=== PATIENT | male | born 1940 | race Caucasian/White ===

== ENCOUNTER 2022-04-06 20:39 | Outpatient (CLI) | payer MEDICARE, SELFPAY | END 2022-04-06 20:40 | disposition home or self-care (01) | LOC: SLEEP 20:39 | PROVIDERS: Visit Provider Internal Medicine | DX: G47.33 Obstructive sleep apnea (adult) (pediatric) (principal); G47.31 Primary central sleep apnea | CPT/HCPCS: 95811 ==

== ENCOUNTER 2022-04-16 14:48 | Outpatient (CLI) | payer MEDICARE, SELFPAY | END 2022-04-16 14:49 | disposition home or self-care (01) | LOC: RAD 14:50 | PROVIDERS: PCP Family Medicine; Visit Provider Internal Medicine | DX: G47.31 Primary central sleep apnea (principal); I51.7 Cardiomegaly; I35.1 Nonrheumatic aortic (valve) insufficiency; I35.0 Nonrheumatic aortic (valve) stenosis; I34.0 Nonrheumatic mitral (valve) insufficiency | CPT/HCPCS: 93306 ==

== ENCOUNTER 2022-05-02 20:27 | Outpatient (CLI) | payer MEDICARE, SELFPAY | END 2022-05-02 20:28 | disposition home or self-care (01) | LOC: SLEEP 20:27 | PROVIDERS: PCP Family Medicine; Visit Provider Internal Medicine | DX: G47.33 Obstructive sleep apnea (adult) (pediatric) (principal); G47.30 Sleep apnea, unspecified | CPT/HCPCS: 95811 ==

== ENCOUNTER 2022-06-20 20:54 | Outpatient (CLI) | payer MEDICARE, SELFPAY | END 2022-06-20 20:55 | disposition home or self-care (01) | LOC: SLEEP 20:55 | PROVIDERS: PCP Family Medicine; Visit Provider Internal Medicine | DX: G47.33 Obstructive sleep apnea (adult) (pediatric) (principal); G47.31 Primary central sleep apnea | CPT/HCPCS: 95811 ==

== ENCOUNTER 2024-08-31 10:21 | Emergency (ER) | payer MEDICARE, SELFPAY ==
[2024-08-31] VITALS (36 sets, daily range): BP systolic 56–116; BP diastolic 34–76; PULSE 71–111; RESP 13–40; TEMP 35.9; O2SAT 83–933
--- OUTSIDE RECORDS SUMMARY | 2024-08-31 10:23 | XMS_ITS | Clinical Summary ---
Author Organization [facility] Address [address] [place] [id number] Care Team Providers Care [place] Man Name Role Phone Yordan Hernandez MD Primary Care Provider [phone] Allergies Active Allergy Reactions Criticality Noted Date Comments Tamsulosin Other - Describe In Comment Field 01/21/2017 Dry mouth Hydrocodone-Acetaminophen Insomnia 08/20/2015 Medications COQ10 SG 100 ORAL 3 30 mg tabs daily Active MULTIVITAMIN CAP One daily Act stacie aspirin enteric coated 81 mg tabletIndications: Coronary atherosclerosis of unspecified type of vessel, [place] or graft Take 1 tablet by mouth once daily with a meal. 0 06/14/19 12 Active amoxicillin (AMOXIL) 500 mg capsule Take 500 mg by mouth. for dental procedure 05/01/19 21 Active latanoprost (XALATAN) 0.005 % ophthalmic solution Place 1 Drop into both eyes once daily. 04/01/20 21 Active desonide 0.05% (DESOWEN 0.05% LOTION) 0.05 % lotionIndications: Dermatitis Apply topically to affected area(s) two times daily. Use for up to 2 weeks then take a week off and repeat. 59 mL 01/12/20 22 Active finasteride (PROSCAR) 5 mg tablet Take 5 mg by mouth every morning. 05/14/19 23 Active nitroglycerin (NITROSTAT) 0.4 mg sublingual tabletIndications: Atherosclerosis of coronary artery bypass graft of [place] heart without angina pectoris Place 1 Tablet (0.4 mg) under the tongue every 5 minutes if needed for Chest Pain (Okay to repeat every 5 minutes X 2 if ongoing pain.). 30 Tablet 5 06/17/19 24 Active BIPAPIndications:P rimary central sleep apnea ASV machine for home use at pressure: 9 epap, PS 3-10 cmw, full face mask x1/3month with a full face cushion x1/mo 1 Each 11 06/22/19 25 Active memantine 10 mg tabletIndications: Memory loss TAKE ONE TABLET BY MOUTH TWICE A DAY 180 Tablet 08/07/19 25 Active amLODIPine 10 mg tabletIndications: CAD in [place] artery,Essential hypertension TAKE ONE-HALF TABLET BY MOUTH EVERY DAY 45 Tablet 1 08/07/19 25 Active clopidogreL 75 mg tabletIndications: Coronary artery disease involving [place] coronary artery of [place] heart without angina pectoris TAKE ONE TABLET BY MOUTH EVERY MORNING 90 Tablet 4 08/07/19 25 Active rosuvastatin 20 mg tabletIndications: CAD in [place] artery TAKE ONE TABLET BY MOUTH EVERY DAY WITH EVENING MEAL 90 Tablet 1 08/07/19 25 Active pantoprazole 20 mg tabletIndications: Gastroesophageal reflux disease without esophagitis TAKE ONE TABLET BY MOUTH EVERY DAY 90 Tablet 1 08/19/19 25 Active amLODIPine (NORVASC) 10 mg tabletIndications: CAD in [place] artery,Essential hypertension Take 0.5 Tablets (5 mg) by mouth once daily. 45 Tablet 4 06/17/19 24 2024 Discontinued rosuvastatin (CRESTOR) 20 mg tabletIndications: CAD in [place] artery Take 1 Tablet (20 mg) by mouth once daily with evening meal. Wait until they call for this. 90 Tablet 4 06/17/19 24 2024 Discontinued pantoprazole (PROTONIX) 20 mg tabletIndications: Gastroesophageal reflux disease without esophagitis Take 1 Tablet (20 mg) by mouth once daily. 90 Tablet 06/17/19 24 2024 Discontinued clopidogreL (PLAVIX) 75 mg tabletIndications: Coronary artery disease involving [place] coronary artery of [place] heart without angina pectoris Take 1 Tablet (75 mg) by mouth every morning. 90 Tablet 4 06/17/19 24 2024 Discontinued memantine (NAMENDA) 10 mg tabletIndications: Memory loss TAKE ONE TABLET (10 MG) BY MOUTH TWICE A DAY 180 Tablet 4 06/17/19 24 2024 Discontinued Active Problems Problem Noted Date Diagnosed Date ROSALIO 04/06/2022 AHI- 88; 1/2 centrals 06/22/2022 Central apnea 04/06/2022 AHI- 88; 1/2 centrals 0 06/22/2022 Depression, recurrent 01/18/2022 Memory loss 04/08/2021 Overview (04/17/2024): He scored 23/30 on MMSE on 04/08/2021. He was started on Aricept 04/08/2021. He scored 25/30 on MMSE on 01/18/2022. 03/2022 stopped Aricept due to Ventricular tachycardia and started Namenda. His MMSE today is 27/30 on 07/02/2022. Do not drive unless you are approved to drive by [employer]. He was told this in 2021 Coronary artery disease invo lving [place] coronary artery of [place] heart without angina pectoris 04/08/2021 Overview (04/08/2021): As of 04/2017 Dr. Ba of Cardiology recommended lifelong Plavix due to his left anterior descending stent. Gastroesophageal reflux disease 07/14/2016 Anticoagulation monitoring, special range (1.8-2 .5) 09/01/2015 Status post total hip replacement, right 016 Malignant melanoma 10/31/2013 Bradycardia 06/15/2012 Overview (07/29/2017): As of 04/2017 Dr. Ba of Cardiology stated he may eventually need a pacemaker and he stopped his Atenolol Diverticulosis of colon (without mention of hemo rrhage) 08/07/2010 Overview (08/07/2010): Colonoscopy 07/2010 diverticulosis Acute gastritis without mention of hemorrhage Overview (07/13/2010): EGD 06/2010 gastritis Hypertension 07/01/2008 Mixed Hyperlipidemia 09/12/2006 Overview (07/12/2008): Basename 07/01/08 0942 CHOL 148 TRIGLYCER* 103 HDL 49 CHOLHDLRA* 3.02 LDLCHOL 78 Osteoarthrosis, unspecified whether generalized or localized, unspecified site 09/12/2006 Encounters Date Type Department Care Team Description 08/17/2024 Refill [facility] [address] [facility] [place] [address] Yordan Hernandez MD Refill Request (Pantoprazole) 08/05/2024 Refill [facility] [address] [facility] [place] [address] Yordan Hernandez MD Refill Request (Memantine, Amlodipine, Clopidogrel, Rosuvastatin) 06/21/2024 10:00 AM CDT Office Visit [facility] [address] [place] [place] [address] Oli Casiano MD Sleep Follow-up 06/21/2024 Travel from Last 3 Months Immunizations Immunization Administration Dates Next Due Influenza, High-dose Quadrivalent Inactivated Influenza, Inactivated AIIV4 (Age 65+ Years) Preserv Free 01/18/2022,04/08/2021 Pneumococcal Poly,23-Valent (Pneumovax) 07/30/19 18 Pneumococcal conj 13-Valent (Prevnar 13) 015 Td (Age >=7 Years) 06/20/1995 Td, Preservative Free (age >= 7 Years) 7 Tdap 10/19/2017 Family History Medical History Relation Name Comments Thyroid Disease Brother after b reaking his hip at 92 Heart Disease Father ID at 69 Cancer Mother female Thyroid Disease Sister Cancer Son Malignant Melan anurag Relation Name Status Comments Brother Father Mother Sister Son Social History Tobacco Use Types Packs/Day Years Used Date Smoking Tobacco: Never Passive Smoke Exposure: Never Smokeless Tobacco: Never Tobacco Cessation:Counseling Given: Yes Alcohol Use Standard Drinks/Week Comments No 0 (1 standard drink = 0.6 oz pur e alcohol) PHQ-2 Answer Date Recorded PHQ-2 TOTAL SCORE 0 06/17/2023 Social Connections Answer Date Recorded Frequency of Communication with Friends and Fami ly 0 01/18/2022 Financial Resource Strain Answer Date R ecorded Difficulty of Paying Living Expenses 3 01/18/2022 Difficulty of Paying Living Expenses Not on file 01/18/2022 Food Insecurity Answer Date Recorded Worried About Running Out of Food in the Last Ye ar 1 01/18/2022 Transportation Needs Answer Date Record ed Lack of Transportation (Medical) 1 01/18/2022 Housing Stability Answer Date Recorded Unable to Pay for Housing in the Last Year 1 01/18/2022 Sex and Gender Information Value Date Recorded Sex Assigned at Not on file 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 Gender Identity Not on file Sexual Orientation Not on file Occupation Industry Job Start Date Job End Date [employer] Not on file Not on file Not on file Obstetrics History Last Filed Vital Signs Vital Sign Reading Time Taken Comments Blood Pressure 137/64 06/21/2024 10:16 AM CDT Pulse 48 06/21/2024 10:16 AM CDT Temperature 37.1 C (98.7 F) 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 Respiratory Rate 16 11/07/2018 11:38 AM CDT Oxygen Saturation 97% 06/21/2024 10:16 AM CDT Inhaled Oxygen Concentration - - Weight 64.4 kg (142 lb) 06/21/2024 10:16 AM CDT Height 165 cm (5' 4.96) 06/21/2024 10:16 AM CDT Body Mass Index 23.66 06/21/2024 10:16 AM CDT Plan of Treatment Health Maintenance Due Date Last Done Comments Depression screening for age 12+ 1952 Zoster (shingles) series for age 50+ (1 of 2) 1989 RSV vaccine for adults or (1 - 1-dose 75+ series) 2014 COVID-19 vaccine series ( season) 2023 02/27/2021, 06/21/2020, 05/31/2020 Medicare Wellness for age 65+ 06/17/2024 06/17/2023, 04/09/2022, 04/08/2021, Additional history exists Influenza Vaccine (Season Ended) 2024 01/18/2022, 04/08/2021 BMI (ht and wt on same day) for age 18+ 06/21/2025 06/21/2024, 02/15/2023, 09/17/2022, Additional history exists Tetanus booster 10/20/2027 10/19/2017, 08/2006, 06/20/1995 Pneumococcal series for age 50+ Completed 07/29/2017, 10/09/2014 Tdap Completed 10/19/2017 Hepatitis B series for 19+ Aged Out N o longer eligible based on patient's age to complete this topic Insurance [employer] MEDICARE ADVANTAGE [facility] Advance Directives Documents on File Type Date Recorded 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 Healthcare Directive 01/03/2018 11:17 AM H [employer] DIRECTIVE, [employer], 12/28/17 Healthcare Directive 11/25/2017 12:00 AM * Full Code (Latest Code Status on File) Date Activated Date Inactivated Comments 06/14/2012 7:16 AM 06/15/2012 1:06 PM * Full Code Date Activated Date Inactivated Comments 07/12/2008 11:20 AM 07/13/2008 5:19 PM * Full Code Date Activated Date Inactivated Comments 03/19/2005 7:32 AM 03/20/2005 1:58 PM Care Teams [place] Man Relationship Specialty Start Date End Date Yordan Hernandez MD [address] [place] [address] PCP - General Family Practice 01/23/19
--- OUTSIDE RECORDS SUMMARY | 2024-08-31 10:23 | XMS_ITS | Data Portability ---
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 Plan of Treatment Reminders Order Date Submit Date Provider Last Modified By Organization Details Last Modified Time Details Appointments None recorded. Lab urinalysis, dipstick 2023 024 [email or web address] [facility], [address], [place], [address], 4 11:58:50 urinalysis, dipstick 2022 023 [email or web address] [facility], [address], [place], [address], 3 11:50:57 urinalysis, dipstick 2022 023 [email or web address] [facility], [address], [place], [address], 3 11:10:18 PSA, serum or plasma 2022 023 POLINA [facility], [address], [place], [address], 3 15:43:12 Referral None recorded. Procedures None recorded. Surgeries None recorded. Imaging None recorded. Medication Orders finasteride 5 mg tablet 2023 024 [facility] [place], [address], 12:43:01 finasteride 5 mg tablet 2022 023 [facility], [address] [place], [address], 12:12:58 finasteride 5 mg tablet 2022 023 [facility], [address] [place], [address], 11:58:49 Patient TargetsNo targets recorded. Patient Instructions Encounter Date Encounter Id Patient Instructions Last Modified By Organization Details Last Modified Time 05/14/2022 [id number] Irritative LUTS with large gland, safely emptying, no UTI. I will check a PSA to ensure not 500+, his TRUE is not clearly prostate cancer, but is equivocal. Will begin finasteride - this does not impact blood pressure or cerebral tissue perfusion like Flomax. So long as PSA is not logrithmically high, will see me in Oct 2022 for follow up. Not available 05/14/2022 11:58:46 10/22/2022 [id number] Day and night symptoms improved with single agent finasteride. Will continue. Follow up with me in 1 year. Not available 10/22/2022 12:12:46 11/04/2023 [id number] Navarro is doing well on solo finasteride, QOL relative to habits remains strong. Continue finasteride, with me in 1 year. Not available 11/04/2023 12:42:58 Reason for Referral None Reported. Results Created Date Observation Date Name Description Value Unit Range Abnormal Flag Note LastModifiedBy Organization Detail LastModifiedTime 05/14/1905/14/2022 PSA, serum or plasm a PSA 1.9 0-4.0 Not Available [facility] [address], [place], [address], 05/14/2022 11:56:56 05/14/1905/14/2022 urina lysis , dipst ick Nitrates-Sta tus negati ve Not Available [facility] [address], [place], [address], 05/14/2022 11:09:47 05/14/19 23 05/14/2022 urina lysis , dipst ick Blood-Status Negati ve Not Available [facility] [address], [place], [address], 05/14/2022 11:09:47 05/14/19 23 05/14/2022 urina lysis , dipst ick Leuko-Status Negati ve Not Available [facility] [address], [place], [address], 05/14/2022 11:09:47 10/23/19 23 10/22/2022 urina lysis , dipst ick Bilirubin-St atus Small Not Available [facility] [address], [place], [address], 10/22/2022 11:49:57 10/23/19 23 10/22/2022 urina lysis , dipst ick Ketones-Stat us 15 Not Available [facility] [address], [place], [address], 10/22/2022 11:49:57 10/23/19 23 10/22/2022 urina lysis , dipst ick pH-Status 5.0 Not Available [facility] [address], [place], [address], 10/22/2022 11:49:57 10/23/19 23 10/22/2022 urina lysis , dipst ick Protein-Stat us >=9.0 Not Available [facility] [address], [place], [address], 10/22/2022 11:49:57 10/23/19 23 10/22/2022 urina lysis , dipst ick Nitrates-Sta tus negati ve Not Available [facility] [address], [place], [address], 10/22/2022 11:49:57 10/23/19 23 10/22/2022 urina lysis , dipst ick Blood-Status Negati ve Not Available [facility] [address], [place], [address], 10/22/2022 11:49:57 10/23/19 23 10/22/2022 urina lysis , dipst ick Leuko-Status Negati ve Not Available [facility] [address], [place], [address], 10/22/2022 11:49:57 10/23/19 23 10/22/2022 urina lysis , dipst ick Specimen Type Voided Not Available [facility] [address], [place], [address], 10/22/2022 11:49:57 11/04/19 24 11/04/2023 urina lysis , dipst ick BLOOD Negati ve Not Available [facility] [address], [place], [address], 11/04/2023 11:58:22 11/04/19 24 11/04/2023 urina lysis , dipst ick BILIRUBIN Negati ve Not Available [facility] [address], [place], [address], 11/04/2023 11:58:22 11/04/19 24 11/04/2023 urina lysis , dipst ick UROBILINOGEN 1.0 mg/dL Not Available [facility] [address], [place], [address], 11/04/2023 11:58:22 11/04/19 24 11/04/2023 urina lysis , dipst ick KETONES Negati ve Not Available [facility] [address], [place], [address], 11/04/2023 11:58:22 11/04/19 24 11/04/2023 urina lysis , dipst ick PROTEIN Negati ve Not Available [facility] [address], [place], [address], 11/04/2023 11:58:22 11/04/19 24 11/04/2023 urina lysis , dipst ick NITRITES Negati ve Not Available [facility] [address], [place], [address], 11/04/2023 11:58:22 11/04/19 24 11/04/2023 urina lysis , dipst ick GLUCOSE Negati ve Not Available [facility] [address], [place], [address], 11/04/2023 11:58:22 11/04/19 24 11/04/2023 urina lysis , dipst ick p.H. 5.5 Not Available [facility] [address], [place], [address], 11/04/2023 11:58:22 11/04/19 24 11/04/2023 urina lysis , dipst ick S.G. (Specific [place]) 1.025 Not Available [facility] [address], [place], [address], 11/04/2023 11:58:22 11/04/19 24 11/04/2023 urina lysis , dipst ick LEUKOCYTES Negati ve Not Available [facility] [address], [place], [address], 11/04/2023 11:58:22 05/19/19 23 05/14/2022 bladd er scan (PROC ) No observ ation record ed. BARCODE Not Available 2022 08:53:07 Result Notes None recorded. Problems Name Problem SNOMED Code Status Onset Date Resolution Date Notes Provider Name and Address Organization Details Recorded Time Nocturia 166691711 Active Stevenson Pack MD [address] [place] [address],[address], [address] , [facility] 12:42:37 Problem Notes None recorded. Procedures Surgical History Date Name Laterality Status Provider Name and Address Organization Details Recorded Time COMPLEX VISIT completed Stevenson Pack MD [address] [place] [address],[address], [place], [address], [facility] 11/04/2023 12:42:24 024 Bladder Scan completed Jennifer Palacios [facility] 11/04/2023 11:58:56 023 Bladder Scan completed Mariia Lambert [facility] 10/22/2022 11:59:41 023 Bladder Scan completed Katlyn Moura [facility] 05/14/2022 11:11:51 023 Blood Draw/[employer]ESS[employer]/PSA RESULTS completed Katlyn Moura [facility] 05/14/2022 14:14:14 cardiopulmonary bypass operation completed Katlyn Moura [facility] 05/14/2022 11:08:53 Appendectomy completed Katlyn Moura [facility] 05/14/2022 11:09:16 Imaging Results Imaging Date Name Status LastModified by Organiz ation Details LastModified Time 05/14/2022 bladder scan (PROC) completed BARCODE Information not available 05/19/2022 08:53:07 Procedure Notes None recorded. Medical Equipment None Reported. Allergies Allergen ID Allergen Name Allergen Category Reaction Reaction Severity Criticality Documentation Date Start Date Code Code System Note Provider Name and Address Organization Details Recorded Time 566739 acetamino phen / hydrocodo ne medicatio n Not available Not available Not available 05/14/2022 35581 2 RxNorm Katlyn terry [facility] 11:08:13 486265 Flomax medicatio n Not available Not available Not available 11/04/2023 05160 3 RxNorm Jennifer Palacios mara [facility] 12:01:38 Medications Name Sig Start Date Stop Date Status Note LastModified by Organization Details LastModified Time amoxicillin 500 mg capsule active Not Available Not Available Not Available latanoprost 0.005 % eye drops active Not Available Not Available Not Available ofloxacin 0.3 % eye drops active Not Available Not Available Not Available donepezil 10 mg tablet active Not Available Not Available No t Available clopidogrel 75 mg tablet active Not Available Not Available Not Available pantoprazole 20 mg tablet,delay ed release active Not Available Not Available N ot Available ketorolac 0.5 % eye drops 11/03 completed Not Available Not Available Not Available prednisolone acetate 1 % eye drops,suspen saqib 11/03 completed Not Available Not Available Not Available amlodipine 10 mg tablet active Not Available Not Available Not Available timolol maleate 0.25 % eye drops 11/03 completed Not Available Not Available Not Available desonide 0.05 % lotion active Not Available Not Available Not Available timolol maleate 0.5 % eye drops 11/03 completed Not Available Not Available Not Available finasteride 5 mg tablet Take 1 tablet every day by oral route. active Not Available Not Available No t Available rosuvastatin 20 mg tablet active Not Available Not Available Not Available memantine 10 mg tablet active Not Available Not Available No t Available memantine 5 mg tablet active Not Available Not Available No t Available aspirin 81 mg capsule Take 1 capsule every day by oral route. active Not Available Not Available No t Available Vitals Date Recorded Body height Body mass index (BMI) Body weight Provider Name and Address Organization Details Last Updated DateTime 05/14/2022 165.1 cm 21.6 kg/m2 74773.01 g Katlyn Moura [facility] 05/14/2022 11:07:58 Date Recorded Body height Body mass index (BMI) Body weight Provider Name and Address Organization Details Last Updated DateTime 10/22/2022 165.1 cm 21.6 kg/m2 13499.01 g Tita Christofer [facility] 10/22/2022 11:47:54 Date Recorded Body height Body mass index (BMI) Body weight Provider Name and Address Organization Details Last Updated DateTime 11/04/2023 165.1 cm 21.6 kg/m2 64950.01 g Jennifer Palacios [facility] 11/04/2023 11:59:37 Social History Question Answer Notes LastModified by Organizat ion Details LastModified Time Tobacco Smoking Status Never Smoker [facility] 05/14/2022 11:08:23 What Was The Date Of Your Most Recent Tobacco Screening? 11/04/2023 [email or web address] Information not available 11/04/2023 Sex: Unknown Functional Status None recorded. Mental Status None recorded. Family History Nothing Reported. Medical History Condition Response Sexually Transmitted Infection N Diabetes N Bleeding Disorder N High Blood Pressure Y Kidney Stones N Cancer N Lung Disease N Depression N High Cholesterol Y GERD/Acid Reflux Y Heart Disease N Immunizations Vaccine Type Date Status Note Provider Nam e and Address Organization Details Recorded Time Influenza, adjuvanted, quadrivalent, PF 2 [facility] 11:48:02 Influenza, adjuvanted, quadrivalent, PF 1 completed Tita terry [facility] 10/22/2022 11:48:02 COVID-19, mRNA, LNP-S, PF, 30 mcg/0.3 mL dose 1 completed Tita terry [facility] 10/22/2022 11:48:02 COVID-19, mRNA, LNP-S, PF, 30 mcg/0.3 mL dose 1 completed Tita terry [facility] 10/22/2022 11:48:02 COVID-19, mRNA, LNP-S, PF, 30 mcg/0.3 mL dose 1 completed Tita terry [facility] 10/22/2022 11:48:02 pneumococcal polysaccharide PPV23 8 [facility]22 11:48:02 Tdap 8 [facility] 11:48:02 Pneumococcal conjugate PCV 13 5 completed Tita terry [place] [facility] 10/22/2022 11:48:02 Past Encounters Encounter ID Performer Location Encounter Start Date Encounter Closed Date Diagnosis/Indication Diagnosis SNOMED-CT Code Diagnosis ICD10 Code Diagnosis Note [id number] Stevenson Pack MD [facility] [address] [place] [address] 05/14/2022 10:44:55 05/19/2022 09:58:49 Benign prostatic hyperplasia with outflow obstruction 402178898 N40.1 Nocturia 081681738 R35.1 [id number] Stevenson Pack MD [facility] [address] [place] [address] 10/22/2022 11:28:56 10/28/2022 15:41:52 Benign prostatic hyperplasia with outflow obstruction 073709724 N40.1 Nocturia 410835494 R35.1 [id number] Stevenson Pack MD [facility] [address] [place] [address] 11/04/2023 11:37:29 11/04/2023 16:12:47 Benign prostatic hyperplasia with outflow obstruction 564901826 N40.1 Nocturia 155900268 R35.1 Health Concerns Section Related Observation LastModified by Organization Detai ls LastModified Time None Recorded Concern Status LastModified by Organization Details LastModified Time None Recorded Advance Directives Directive None Recorded Payers Insurance Date Sequence Insurance Name Policy Number Policy Talavera Covered Member ID Talavera Member ID Guarantor Name 11/04/2023 1 [facility] [id number] Navarro Meyer [id number] Navarro Meyer 11/04/2023 1 [place] [employer] Navarro Meyer [id number] Navarro Meyer 11/21/2023 1 [facility]: (MEDICARE REPLACEMENT PPO) [id number] Navarro Meyer [id number] Navarro Meyer Notes Date Note Type Note Provider Name and Address Organization Details Recorded Time 05/14/2022 text/html 81M presents wit h worsening day and night time frequency, intermittent stream, hesitancy. No UTIs, GH, dysuria. Has dementia, between medications for this, no PD, no prior events. UA normalPVR zero Katlyn Zeny terry, [facility] 05/14/2022 14:14:17 10/22/2022 text/html 81M retrns for follow up relative to BPH/LUTS. Came to me in May 2022 with worsening day and night time frequency, intermittent stream, hesitancy. No UTIs, GH, dysuria. Has dementia, between medications for this, no PD, no prior events. I placed him on finasteride, here today reporting improved LUTS, nocturia x 1, very happy. UA normalPVR zeroPSA 1.9 Stevenson Pakc MD [address] [place] [address],[address], [address], [facility] 10/22/2022 12:13:06 11/04/2023 text/html 83M returns for follow up relative to BPH/LUTS. Came to me in May 2022 with worsening day and night time frequency, intermittent stream, hesitancy. No UTIs, GH, dysuria. Has dementia, between medications for this, no PD, no prior events. I placed him on finasteride, stable, doing well, tolerating med, no complaints.UA normalPVR zeroPSA 1.9 at initial consultation. We have stopped these. Stevenson Pack MD [address] [place] [address],[address], [place], [address], [facility] 11/04/2023 12:43:10
--- OUTSIDE RECORDS SUMMARY | 2024-08-31 10:23 | XMS_ITS | Data Portability ---
Author Organization [facility], [facility] Address [address] [place] [address] Care Team Providers Care [facility] Former [facility] Name Role Phone STEPHY THOMPSON Primary Care Provider Assessment No assessment recorded. Plan of Treatment Reminders Order Date Submit Date Provider Last Modified By Organization Details Last Modified Time Details Appointments None recorded. Lab urinalysis, dipstick 2023 024 [email or web address] [facility], [address], [place], [address], 4 11:58:50 urinalysis, dipstick 2022 023 [email or web address] [facility], [address], [place], [address], 3 11:50:57 urinalysis, dipstick 2022 023 [email or web address] [facility], [address], [place], [address], 3 11:10:18 PSA, serum or plasma 2022 023 POLINA [facility], [address], [place], [address], 3 15:43:12 Referral None recorded. Procedures None recorded. Surgeries None recorded. Imaging None recorded. Medication Orders finasteride 5 mg tablet 2023 024 [facility], [address] [place], [address], 12:43:01 finasteride 5 mg tablet 2022 023 [facility], [address] [place], [address], 12:12:58 finasteride 5 mg tablet 2022 023 [facility], [address] [place], [address], 11:58:49 Patient TargetsNo targets recorded. Patient Instructions Encounter Date Encounter Id Patient Instructions Last Modified By Organization Details Last Modified Time 05/14/2022 [id number] Irritative LUTS with large gland, safely emptying, [...] follow up. Not available 05/14/2022 11:58:46 10/22/2022 [id number] Day and night symptoms improved with single agent finasteride. Will continue. Follow up with me in 1 year. Not available 10/22/2022 12:12:46 11/04/2023 [id number] Navarro is doing well on solo finasteride, QOL relative to habits remains strong. Continue finasteride, with me in 1 year. Not available 11/04/2023 12:42:58 Reason for Referral None Reported. Results Created Date Observation Date Name Description Value Unit Range Abnormal Flag Note LastModifiedBy Organization Detail LastModifiedTime 05/14/1905/14/2022 PSA, serum or plasm a PSA 1.9 0-4.0 Not Available [facility] [address], [place], [address], 05/14/2022 11:56:56 05/14/1905/14/2022 urina lysis , dipst ick Nitrates-Sta tus negati ve Not Available [facility] [address], [place], [address], 05/14/2022 11:09:47 05/14/19 23 05/14/2022 urina lysis , dipst ick Blood-Status Negati ve Not Available [facility] [address], [place], [address], 05/14/2022 11:09:47 05/14/19 23 05/14/2022 urina lysis , dipst ick Leuko-Status Negati ve Not Available [facility] [address], [place], [address], 05/14/2022 11:09:47 10/23/19 23 10/22/2022 urina lysis , dipst ick Bilirubin-St atus Small Not Available [facility] [address], [place], [address], 10/22/2022 11:49:57 10/23/19 23 10/22/2022 urina lysis , dipst ick Ketones-Stat us 15 Not Available [facility] [address], [place], [address], 10/22/2022 11:49:57 10/23/19 23 10/22/2022 urina lysis , dipst ick pH-Status 5.0 Not Available [facility] [address], [place], [address], 10/22/2022 11:49:57 10/23/19 23 10/22/2022 urina lysis , dipst ick Protein-Stat us >=9.0 Not Available [facility] [address], [place], [address], 10/22/2022 11:49:57 10/23/19 23 10/22/2022 urina lysis , dipst ick Nitrates-Sta tus negati ve Not Available [facility] [address], [place], [address], 10/22/2022 11:49:57 10/23/19 23 10/22/2022 urina lysis , dipst ick Blood-Status Negati ve Not Available [facility] [address], [place], [address], 10/22/2022 11:49:57 10/23/19 23 10/22/2022 urina lysis , dipst ick Leuko-Status Negati ve Not Available [facility] [address], [place], [address], 10/22/2022 11:49:57 10/23/19 23 10/22/2022 urina lysis , dipst ick Specimen Type Voided Not Available [facility] [address], [place], [address], 10/22/2022 11:49:57 11/04/19 24 11/04/2023 urina lysis , dipst ick BLOOD Negati ve Not Available [facility] [address], [place], [address], 11/04/2023 11:58:22 11/04/19 24 11/04/2023 urina lysis , dipst ick BILIRUBIN Negati ve Not Available [facility] [address], [place], [address], 11/04/2023 11:58:22 11/04/19 24 11/04/2023 urina lysis , dipst ick UROBILINOGEN 1.0 mg/dL Not Available [facility] [address], [place], [address], 11/04/2023 11:58:22 11/04/19 24 11/04/2023 urina lysis , dipst ick KETONES Negati ve Not Available [facility] [address], [place], [address], 11/04/2023 11:58:22 11/04/19 24 11/04/2023 urina lysis , dipst ick PROTEIN Negati ve Not Available [facility] [address], [place], [address], 11/04/2023 11:58:22 11/04/19 24 11/04/2023 urina lysis , dipst ick NITRITES Negati ve Not Available [facility] [address], [place], [address], 11/04/2023 11:58:22 11/04/19 24 11/04/2023 urina lysis , dipst ick GLUCOSE Negati ve Not Available [facility] [address], [place], [address], 11/04/2023 11:58:22 11/04/19 24 11/04/2023 urina lysis , dipst ick p.H. 5.5 Not Available [facility] [address], [place], [address], 11/04/2023 11:58:22 11/04/19 24 11/04/2023 urina lysis , dipst ick S.G. (Specific [place]) 1.025 Not Available [facility] [address], [place], [address], 11/04/2023 11:58:22 11/04/19 24 11/04/2023 urina lysis , dipst ick LEUKOCYTES Negati ve Not Available [facility] [address], [place], [address], 11/04/2023 11:58:22 05/19/19 23 05/14/2022 bladd er scan (PROC ) No observ ation record ed. BARCODE Not Available 2022 08:53:07 Result Notes None recorded. Problems Name Problem SNOMED Code Status Onset Date Resolution Date Notes Provider Name and Address Organization Details Recorded Time Nocturia 804171639 Active Stevenson Pack MD [address] [place] [address],[address], [place], [address] , [facility] 12:42:37 Problem Notes None recorded. Procedures Surgical History Date Name Laterality Status Provider Name and Address Organization Details Recorded Time COMPLEX VISIT completed Stevenson Pack MD [address] [place] [address],[address], [place], [address], [facility] 11/04/2023 12:42:24 024 Bladder Scan completed Jennifer Palacios [facility] 11/04/2023 11:58:56 023 Bladder Scan completed Mariia Lambert [facility] 10/22/2022 11:59:41 023 Bladder Scan completed Katlyn Moura [facility] 05/14/2022 11:11:51 023 Blood Draw/[employer]/PSA RESULTS completed Katlyn Moura [facility] 05/14/2022 14:14:14 cardiopulmonary bypass operation completed Katlyn Moura [facility] 05/14/2022 11:08:53 Appendectomy completed Katlyn Moura [facility] 05/14/2022 11:09:16 Imaging Results Imaging Date Name Status LastModified by Organiz ation Details LastModified Time 05/14/2022 bladder scan (PROC) completed BARCODE Information not available 05/19/2022 08:53:07 Procedure Notes None recorded. Medical Equipment None Reported. Allergies Allergen ID Allergen Name Allergen Category Reaction Reaction Severity Criticality Documentation Date Start Date Code Code System Note Provider Name and Address Organization Details Recorded Time 872830 acetamino phen / hydrocodo ne medicatio n Not available Not available Not available 05/14/2022 45996 2 RxNorm Katlyn terry [facility] 11:08:13 176702 Flomax medicatio n Not available Not available Not available 11/04/2023 85019 3 RxNorm Jennifer Palacios mar[facility] 12:01:38 Medications Name Sig Start Date [...] Updated DateTime 05/14/2022 165.1 cm 21.6 kg/m2 80972.01 g Katlyn Moura [facility] 05/14/2022 11:07:58 Date Recorded Body height Body mass index (BMI) Body weight Provider Name and Address Organization Details Last Updated DateTime 10/22/2022 165.1 cm 21.6 kg/m2 69611.01 g Tita Christofer [facility] 10/22/2022 11:47:54 Date Recorded Body height Body mass index (BMI) Body weight Provider Name and Address Organization Details Last Updated DateTime 11/04/2023 165.1 cm 21.6 kg/m2 27457.01 g Jennifer Palacios [facility] 11/04/2023 11:59:37 Social History Question Answer Notes LastModified by Organizat ion Details LastModified Time Tobacco Smoking Status [facility]/14/2022 11:08:23 What Was The Date Of Your Most Recent Tobacco Screening? 11/04/2023 Information not available 11/04/2023 Sex: Unknown Functional [...] adjuvanted, quadrivalent, PF 1 completed Tita terry [facility] 10/22/2022 11:48:02 COVID-19, mRNA, LNP-S, PF, 30 mcg/0.3 mL dose 1 completed Tita terry [facility] 10/22/2022 11:48:02 COVID-19, mRNA, LNP-S, PF, 30 mcg/0.3 mL dose 1 completed Tita terry [facility] 10/22/2022 11:48:02 COVID-19, mRNA, LNP-S, PF, 30 mcg/0.3 mL dose 1 completed Tita terry [facility] 10/22/2022 11:48:02 pneumococcal polysaccharide PPV23 8 [facility] 11:48:02 [facility]dap 8 [facility] 11:48:02 Pneumococcal conjugate PCV 13 5 completed Tita terry [place] [facility] 10/22/2022 11:48:02 Past Encounters Encounter ID Performer Location Encounter Start Date Encounter Closed Date Diagnosis/Indication Diagnosis SNOMED-CT Code Diagnosis ICD10 Code Diagnosis Note [id number] Stevenson Pack MD [facility] [address] [place] [address] 05/14/2022 10:44:55 05/19/2022 09:58:49 Benign prostatic hyperplasia with outflow obstruction 956198834 N40.1 Nocturia 905129117 R35.1 [id number] Stevenson Pack MD [facility] [address] [place] [address] 10/22/2022 11:28:56 10/28/2022 15:41:52 Benign prostatic hyperplasia with outflow obstruction 900576871 N40.1 Nocturia 873667410 R35.1 [id number] Stevenson Pack MD [facility] [address] [place] [address] 11/04/2023 11:37:29 11/04/2023 16:12:47 Benign prostatic hyperplasia with outflow obstruction 139338881 N40.1 Nocturia 863883245 R35.1 Health Concerns Section Related Observation LastModified by Organization Detai ls LastModified Time None Recorded Concern Status LastModified by Organization Details LastModified Time None Recorded Advance Directives Directive None Recorded Payers Insurance Date Sequence Insurance Name Policy Number Policy Talavera Covered Member ID Talavera Member ID Guarantor Name 11/04/2023 1 [employer] [id number] Navarro Meyer [id number] Navarro Meyer 11/04/2023 1 MED[place] [employer] Navarro Meyer [id number] Navarro Meyer 11/21/2023 1 [employer]: (MEDICARE REPLACEMENT PPO) [id number] Navarro Meyer [id number] Navarro Meyer Notes Date Note Type Note Provider Name and Address Organization Details Recorded Time 05/14/2022 text/html 81M presents wit h worsening day and night time frequency, intermittent stream, hesitancy. No UTIs, GH, dysuria. Has dementia, between medications for this, no PD, no prior events. UA normalPVR zero Katlyn Zeny terry, [facility] 05/14/2022 14:14:17 10/22/2022 text/html 81M retrns [...] very happy. UA normalPVR zeroPSA 1.9 Stevenson Pack MD [address] [place] [address],[address], [place], [address], [facility] 10/22/2022 12:13:06 11/04/2023 text/html 83M returns [...] We have stopped these. Stevenson Pack MD [address] [place] [address],[address], [place], [address], [facility] 11/04/2023 12:43:10
[2024-08-31 11:06] LABS: Hematocrit 53.5 % (37.0-53.0); Hemoglobin* 17.5 gm/dL (13.5-17.5); Immature Granulocytes Abs Auto 0.01 K/uL (0.00-0.30); Immature Granulocytes Pct Auto 0.1 %; Lymphocytes Absolute Auto 2.22 K/uL (0.90-2.90); Lymphocytes Percent Auto 24.2 % (20-44); Mean Corpuscular HGB Conc 33 gm/dL (32-36); Mean Corpuscular Hemoglobin 30 pg (26-34); Mean Corpuscular Volume 91 fL (80-100); Monocytes Percent Auto 7.6 % (0.0-11.0); Neutrophils Absolute Auto 6.24 K/uL (1.7-7.0); Neutrophils Percent Auto 68.1 % (42.0-72.0); Platelet Count* 325 K/uL (140-440); RDW Coefficient of Variation % 15.6 % (11.5-15.5); White Blood Count* 9.17 K/uL (4.50-11.00)
--- NOTE | 2024-08-31 11:06 | ED.CHESTPAIN ---
HPI - Chest Pain General Chief Complaint: Chest Pain Stated Complaint: chest pain Time Seen by Provider: 08/31/24 10:35 History of Present Illness HPI narrative: Patient is a 84-year-old gentleman with history of coronary artery disease status post bypass who awoke approximately 7 hours ago with a anterior chest pain. He has some diaphoresis nausea and vomiting. Patient stated home but was found by his this morning and was brought into the emergency room. Upon arrival E has what appears to be atrial fibrillation/flutter which is a new rhythm for him. I do not see any acute ST or T-wave changes. Patient also has upper abdominal pain and is uncertain whether there is any blood in his vomitus. Patient no longer has significant symptoms other than mild discomfort in his epigastrium. He has had no headaches no fevers no chills no stiff neck no dysuria no other abdominal pain no changes appetite. Related Data Home Medications ?Medication ?Instructions ?Recorded ?Confirmed BiPap HS 08/31/24 amlodipine 10 mg tablet 5 mg PO DAILY 08/31/24 08/31/24 amoxicillin 500 mg capsule 500 mg PO .before procedure 08/31/24 08/31/24 aspirin 81 mg capsule 81 mg PO DAILY 08/31/24 08/31/24 clopidogrel 75 mg tablet 75 mg PO DAILY 08/31/24 08/31/24 coenzyme Q10 30 mg capsule (Co 90 mg PO DAILY 08/31/24 08/31/24 Q-10) desonide 0.05 % topical cream 1 applic topical QHS PRN 08/31/24 08/31/24 finasteride 5 mg tablet 5 mg PO DAILY 08/31/24 08/31/24 latanoprost 0.005 % eye drops 1 drp ophthalmic (eye) DAILY 08/31/24 08/31/24 memantine 10 mg tablet 10 mg PO BID 08/31/24 08/31/24 multivitamin (Daily Multi-Vitamin 1 tab PO DAILY 08/31/24 08/31/24 tablet) nitroglycerin 0.4 mg sublingual 0.4 mg sublingual Q5-15M PRN 08/31/24 08/31/24 tablet pantoprazole 20 mg tablet,delayed 20 mg PO DAILY 08/31/24 08/31/24 release rosuvastatin 20 mg tablet 20 mg PO QPM 08/31/24 08/31/24 Allergies Allergy/AdvReac Type Severity Reaction Status Date / Time acetaminophen (From Vicodin) AdvReac Intermediate Insomnia Verified 08/31/24 10:49 hydrocodone (From Vicodin) AdvReac Intermediate Insomnia Verified 08/31/24 10:49 tamsulosin (From Flomax) AdvReac Mild Dry mouth Verified 08/31/24 10:49 Review of Systems Status of ROS Reports: 10 or more systems reviewed and unremarkable except as noted in History and below PFSH PFSH Social History Smoking Status: Never smoker How often do you have a drink containing alcohol: never AUDIT-C Alcohol total score: 0 Non-prescribed substance use: denies use Exam Narrative Exam Narrative: EXAM GENERAL: Patient appears elderly and frail. EYES: No scleral icterus. LYMPH: No supraclavicular or cervical lymphadenopathy. SKIN: Visible skin seen during exam normal or with benign process only. EXT: No dependent lower extremity pedal edema. HEART: Irregularly irregular with 2/6 systolic murmur. LUNGS: Clear to auscultation bilaterally with no crackles or wheezes. ABD: Soft, non tender, non distended. PSYCH: Good eye contact, speech is not pressured. Const Vital Signs, click to edit/add: Vital Signs - 24 hr 08/31/24 10:30 08/31/24 10:34 Temperature 96.7 F L Pulse Rate [Pulse Oximeter] 81 Respiratory Rate 14 Blood Pressure [Right Upper Arm] 85/57 L Pulse Oximetry 933 H 92 Oxygen Delivery Method Room Air Course Course ED Course: Patient seen examined. Troponin D-dimer CBC electrolytes EKG chest x-ray CT abdomen pelvis pending. Vital Signs Vital signs: Initial Vital Signs Respiratory Effort Normal, Spontaneous, Non-Labored 08/31/24 10:30 Respiratory Depth Normal 08/31/24 10:30 Respiratory Pattern Normal 08/31/24 10:30 Pulse Oximetry 933 H 08/31/24 10:30 Vital Signs Pulse Oximetry 933 H 08/31/24 10:30 Temperature 96.7 F L 08/31/24 10:34 Pulse Rate 81 08/31/24 10:34 Respiratory Rate 14 08/31/24 10:34 Blood Pressure 85/57 L 08/31/24 10:34 Pulse Oximetry 92 08/31/24 10:34 Oxygen Delivery Method Room Air 08/31/24 10:34 Medications Administered Medications: Generic Name Dose Route Start Last Admin Trade Name Helio PRN Reason Stop Dose Admin Ondansetron HCl 4 mg 08/31/24 11:00 08/31/24 11:10 Ondansetron 2 Mg/Ml Inj IVP 4 mg ONCE PRN Administration Discontinued Medications Generic Name Dose Route Start Last Admin Trade Name Helio PRN Reason Stop Dose Admin Sodium Chloride 500 mls @ 500 mls/hr 08/31/24 11:02 08/31/24 11:10 0.9 % Sodium Chloride 500 Ml IV 08/31/24 12:01 500 mls/hr .Q1H ONE Administration MDM - Chest Pain MDM Narrative Medical decision making narrative: Patient is a 4-year-old gentleman who presents approximately 6 hours after waking with chest pain and vomiting. He is noted to be anemic with an elevated D-dimer elevated troponin and new atrial fibrillation. He has a bit of a soft blood pressure of 85/50 and has received normal saline. He is on both Plavix and aspirin. I did call review the case with Cardiology who accepted as transfer. They recommend no further intervention with repeat troponin 90 minutes in case there is a delay. Patient will be transferred via [facility] ambulance for non-STEMI elevated D-dimer hypotension and new atrial fibrillation. Lab Data Labs: Lab Results 08/31/24 Range/Units 10:40 WBC 9.17 (4.50-11.00) K/uL RBC 5.90 (4.30-5.90) m/uL Hgb 17.5 (13.5-17.5) gm/dL Hct 53.5 H (37.0-53.0) % MCV 91 (80-100) fL MCH 30 (26-34) pg MCHC 33 (32-36) gm/dL RDW Coeff of James 15.6 H (11.5-15.5) % Plt Count 325 (140-440) K/uL Neut % (Auto) 68.1 (42.0-72.0) % Lymph % (Auto) 24.2 (20-44) % [place] % (Auto) 7.6 (0.0-11.0) % Eos % (Auto) 0.0 (0.0-7.0) % Baso % (Auto) 0.0 (0.0-3.0) % Neut # (Auto) 6.24 (1.7-7.0) K/uL Lymph # (Auto) 2.22 (0.90-2.90) K/uL [place] # (Auto) 0.70 (0.00-0.90) K/UL Eos # (Auto) 0.00 (0.00-0.50) K/uL Baso # (Auto) 0.00 (0.00-0.30) K/uL Abs Immat Gran (auto) 0.01 (0.00-0.30) K/uL Imm/Tot Granulo (auto) 0.1 % D-Dimer Quant (PE/DVT) 3.68 H (0.00-0.50) ug/ml Sodium 139 (135-149) mmol/L Potassium 3.7 (3.6-5.1) mmol/L Chloride 98 (96-114) mmol/L Carbon Dioxide 18 L (20-32) mmol/L Anion Gap 23 H (7-15) mEq/L BUN 35 H (7-30) mg/dL Creatinine 1.7 H (0.5-1.5) mg/dL Estimated GFR 39 ml/min Glucose 209 H (60-115) mg/dL Calcium 11.6 H (8.4-10.6) mg/dL Total Bilirubin 1.1 (0.1-1.5) mg/dL AST 49 H (12-35) U/L ALT 44 (4-50) U/L Alkaline Phosphatase 98 (40-150) U/L Troponin I 0.09 H* (0.01-0.04) ng/mL Total Protein 8.9 H (6.0-8.3) g/dL Albumin 5.3 H (3.3-5.0) g/dL Lipase 88 (23-300) U/L Discharge Plan Discharge Clinical Impression: Non-ST elevated myocardial infarction (non-STEMI) Patient Disposition: [facility] Condition: Stable Activity Level: Other Discharge Diet: Other Prescriptions: No Action amlodipine 10 mg tablet 5 mg PO DAILY amoxicillin 500 mg capsule 500 mg PO .before procedure Patient Comments: Dental procedures aspirin 81 mg capsule 81 mg PO DAILY BiPap HS Rx Instructions: ASV/BIPAP: 9epap, PS 3-10cmw clopidogrel 75 mg tablet 75 mg PO DAILY finasteride 5 mg tablet 5 mg PO DAILY memantine 10 mg tablet 10 mg PO BID latanoprost 0.005 % drops 1 drp ophthalmic (eye) DAILY desonide 0.05 % cream 1 applic topical QHS PRN coenzyme Q10 [Co Q-10] 30 mg capsule 90 mg PO DAILY multivitamin [Daily Multi-Vitamin] Tablet 1 tab PO DAILY nitroglycerin 0.4 mg tablet, sublingual 0.4 mg sublingual Q5-15M PRN Rx Instructions: do not exceed 3 doses per episode pantoprazole 20 mg tablet,delayed release (DR/EC) 20 mg PO DAILY rosuvastatin 20 mg tablet 20 mg PO QPM Stand Alone Forms: [employer] Info Instructions
[2024-08-31 11:09] LABS: Slide Review Reflex No
[2024-08-31] MEDS: ONDANSETRON 2 MG/ML inj 4 MG IVP (11:10)
[2024-08-31] MEDS: 0.9 % SODIUM CHLORIDE 500 ML 500 ML IV ×2 (11:10→15:30)
[2024-08-31 11:17] LABS: Albumin* 5.3 g/dL (3.3-5.0); Chloride* 98 mmol/L (96-114); Potassium* 3.7 mmol/L (3.6-5.1); Sodium* 139 mmol/L (135-149)
[2024-08-31 11:19] LABS: D Dimer Quantitative* 3.68 ug/ml (0.00-0.50)
[2024-08-31 11:20] LABS: Alanine Aminotransferase* 44 U/L (4-50); Aspartate Amino Transferase* 49 U/L (12-35); Blood Urea Nitrogen* 35 mg/dL (7-30); Creatinine* 1.7 mg/dL (0.5-1.5); Estimated Glomerular Filt Rate 39 ml/min
[2024-08-31 11:26] LABS: Alkaline Phosphatase* 98 U/L (40-150); Anion Gap 23 mEq/L (7-15); Bilirubin Total* 1.1 mg/dL (0.1-1.5); Calcium* 11.6 mg/dL (8.4-10.6); Carbon Dioxide* 18 mmol/L (20-32); Glucose* 209 mg/dL (60-115); Lipase* 88 U/L (23-300); Total Protein* 8.9 g/dL (6.0-8.3)
[2024-08-31 11:35] LABS: Troponin I* 0.09 ng/mL (0.01-0.04)
[2024-08-31 12:53] LABS: Gastric Occult Blood* POSITIVE (Negative)
[2024-08-31 13:26] LABS: pH Gastric Fluid* > 7.0
[2024-08-31 13:43] LABS: Troponin I* 0.12 ng/mL (0.01-0.04)
== END 2024-08-31 15:47 | disposition short-term general hospital (02) ==
PROVIDERS: Emergency Provider Internal Medicine; PCP Family Medicine
DX: I21.4 Non-ST elevation (NSTEMI) myocardial infarction (principal)
CPT/HCPCS: 36415; 80053; 83690; 83986; 84484; 85025; 85379; 93005; 94761; 96374; 99283; 99284; 99285; J2405; J7030

== ENCOUNTER 2024-08-31 15:30 | Outpatient (CLI) | payer MEDICARE, SELFPAY | END 2024-08-31 15:31 | disposition home or self-care (01) | LOC: AMB 09-03 10:23 | PROVIDERS: PCP Family Medicine; Visit Provider Internal Medicine | DX: I21.4 Non-ST elevation (NSTEMI) myocardial infarction (principal) | CPT/HCPCS: A0425; A0427 ==